=== PATIENT | female | born 1950 | race Caucasian/White ===

== ENCOUNTER 2017-07-07 06:41 | Day surgery (SDC) | payer BC ==
[~2017-07-07] VITALS: Ht 157.5 cm; Wt 80.5 kg
[~2017-07-07 06:41] MED LIST: /CIPR75TA OR; ACET65TA OR; ALLE180T33 PO; ALLI PO; BISO10TA PO; CALC-190 PO; CENTTAB PO; CINN500T PO; CO Q100C10 PO; COUM2.5T17 PO; CRAN400C PO; DIOV80TA3 PO; DIOVAN PO; FERR325T OR; FISH5CAP PO; FURO40TA2 PO; LASI20TA OR; MACR50CA OR; MACR50CA PO; NITR50CA2 PO; OMEG340C PO; PERCOCET PO; PROB1TAB PO; TYLENOL PO; VALS1TAB46 PO; VALS80CA OR; ZEBE5TAB OR; [UNRECOGNIZED DRUG - OTHER]; lasix PO; zebeta PO
[2017-07-07] MEDS ORDERED: PHENYLEPHRINE 2.5% OPHTH SOL 2ML OD ONE (07:00)
[2017-07-07] MEDS ORDERED: PROPARACAINE 0.5% OPHTH SOL 15ML OD ONE (07:00)
[2017-07-07] MEDS ORDERED: TROPICAMIDE 1% OPHTH SOLN 2ML OD ONE (07:00)
[2017-07-07] MEDS ORDERED: LIDOCAINE 1% MDV 20ML VIAL SQ PRN (07:00)
[2017-07-07] MEDS ORDERED: fentaNYL 100 MCG/2 ML INJECTION (J3010) As Ordered ONE (08:06)
[2017-07-07] MEDS ORDERED: MIDAZOLAM INJ 2 MG/2 ML VIAL (J2250) As Ordered ONE (08:06)
[2017-07-07] MEDS ORDERED: DUOVISC (0.50ML VISCOAT/0.55ML PROVISC) OPHTH KIT As Ordered ONE (08:07)
[2017-07-07] MEDS ORDERED: CEFUROXIME 1MG/0.1ML INTRACAMERAL INJ As Ordered ONE (08:07)
[2017-07-07] MEDS ORDERED: ACETYLCHOLINE OPHTH SOLN 1% 2ML (MIOCHOL-E) As Ordered ONE (08:07)
[2017-07-07] MEDS ORDERED: POVIDONE-IODINE 5% OPHTH PREP SOL 30ML As Ordered ONE (08:07)
[2017-07-07] MEDS ORDERED: BALANCED SALT IRRIGATION SOLUTION 500ML BAG (FOR OR EYE MACHINE) As Ordered ONE (08:07)
[2017-07-07] MEDS ORDERED: LIDOCAINE 0.75%/EPINEPHRINE 0.025% IN BSS 1ML SYR INTRACAMERAL (OR ONLY) As Ordered ONE (08:07)
[2017-07-07 09:15] VITALS: BP 109/60
[2017-07-07] MEDS ORDERED: BOTULINUM INJ 100 UNITS (J0585) As Ordered ONE (10:07)
--- NOTE | 2017-07-08 20:24 | RO ---
DATE OF PROCEDURE: 07/07/2017 PREOPERATIVE DIAGNOSIS: Visually significant nuclear sclerotic cataract right eye. POSTOPERATIVE DIAGNOSIS: Visually significant nuclear sclerotic cataract right eye. PROCEDURE: Cataract extraction with use of phacoemulsification and placement of intraocular lens, AU00T0, 21.5 diopters, right eye. SURGEON: Allan Sood DO NYLON MACHINE OPERATOR: ANESTHESIA: Local with monitored anesthesia care (MAC). COMPLICATIONS: None. POSTOPERATIVE CONDITION: Stable. INDICATION FOR SURGERY: Blurred vision right eye affecting patient's activities of daily living. DESCRIPTION OF PROCEDURE: The patient was seen in the preoperative area and properly identified. The correct operative eye was identified and marked. Attention was turned to that eye. The patient received topical antibiotics in the preoperative area. The patient then received topical dilating drops consisting of tropicamide and phenylephrine. The patient was then transferred to the operating room. The correct side was re-identified. The patient received topical anesthetics and antibiotics on the surface of the eye. The eye was prepped and draped in a sterile fashion. The upper and lower eyelids were isolated with Tegaderm tape, and the lids were held open with an adjustable speculum. Using a sideport blade, a paracentesis incision was made. Intraocular preservative-free lidocaine was then injected into the anterior chamber. Viscoelastic was then injected into the anterior chamber through the paracentesis. Using a 2.4 mm sharp-tipped keratome, the anterior chamber was entered via a temporal clear corneal incision. A continuous curvilinear capsulorrhexis was created with the aid of a 26-gauge cystotome and Utrata forceps. Hydrodissection was performed with balanced salt solution (BSS) on a blunt cannula until the nucleus was freely mobile. The crystalline lens was phacoemulsified and aspirated. Additional cohesive viscoelastic was placed into the capsular bag to deepen it. A AU00T0, 21.5 diopters lens was placed into the capsular bag and confirmed by visualizing the continuous curvilinear capsulorrhexis. Additional irrigation and aspiration was used to remove cortical material and remaining viscoelastic. The clear corneal incision was hydrated with BSS on a blunt cannula. The lens was well positioned. The incisions were then tested for leaks and found to be negative. The eye was then palpated for appropriate pressure and adjusted accordingly with BSS. The eyelid speculum was carefully removed. A shield was placed over the eye. The patient tolerated the procedure well and was discharged to the recovery unit in a stable condition. MOON
== END 2017-07-07 09:16 | disposition home or self-care (01) ==
LOC: M SDC 06:41
PROVIDERS: ATTEND Ophthalmology
DX: H25.11 Age-related nuclear cataract, right eye (principal); I50.9 Heart failure, unspecified; I10 Essential (primary) hypertension; Z95.0 Presence of cardiac pacemaker; Z95.810 Presence of automatic (implantable) cardiac defibrillator; Z88.0 Allergy status to penicillin; Z88.8 Allergy status to other drugs, medicaments and biological substances; Z87.891 Personal history of nicotine dependence; Z79.899 Other long term (current) drug therapy
CPT/HCPCS: 66984; J2250; J3010

== ENCOUNTER → 2017-07-21 | Day surgery (SDC) | payer BC ==
[~2017-07-21] VITALS: Ht 157.5 cm; Wt 79.0 kg
[~2017-07-21] MED LIST changes: +ACETYLCHOLINE OPHTH SOLN 1% 2ML (MIOCHOL-E) As Ordered ONE; +BALANCED SALT IRRIGATION SOLUTION 500ML BAG (FOR OR EYE MACHINE) As Ordered ONE; +CEFUROXIME 1MG/0.1ML INTRACAMERAL INJ As Ordered ONE; +DUOVISC (0.50ML VISCOAT/0.55ML PROVISC) OPHTH KIT As Ordered ONE; +LIDOCAINE 0.75%/EPINEPHRINE 0.025% IN BSS 1ML SYR INTRACAMERAL (OR ONLY) As Ordered ONE; +MIDAZOLAM INJ 2 MG/2 ML VIAL (J2250) As Ordered ONE; +PHENYLEPHRINE 2.5% OPHTH SOL 2ML OS ONE; +POVIDONE-IODINE 5% OPHTH PREP SOL 30ML As Ordered ONE; +PROPARACAINE 0.5% OPHTH SOL 15ML OS ONE; +TROPICAMIDE 1% OPHTH SOLN 2ML OS ONE; +fentaNYL 100 MCG/2 ML INJECTION (J3010) As Ordered ONE
[2017-07-21 11:29] VITALS: BP 110/62
--- NOTE | 2017-07-26 13:55 | RO ---
DATE OF PROCEDURE: 07/21/2017 PREOPERATIVE DIAGNOSIS: Visually significant nuclear sclerotic cataract left eye. POSTOPERATIVE DIAGNOSIS: Visually significant nuclear sclerotic cataract left eye. PROCEDURE: Cataract extraction with use of phacoemulsification and placement of intraocular lens, AU00T0 19.5, left eye. SURGEON: Allan Sood DO DOOR REPAIRMAN: ANESTHESIA: Local with monitored anesthesia care (MAC). COMPLICATIONS: None. POSTOPERATIVE CONDITION: Stable. INDICATION FOR SURGERY: Blurred vision left eye affecting patient's activities of daily living. DESCRIPTION OF PROCEDURE: The patient was seen in the preoperative area and properly identified. The correct operative eye was identified and marked. Attention was turned to that eye. The patient received topical antibiotics in the preoperative area. The patient then received topical dilating drops consisting of tropicamide and phenylephrine. The patient was then transferred to the operating room. The correct side was re-identified. The patient received topical anesthetics and antibiotics on the surface of the eye. The eye was prepped and draped in a sterile fashion. The upper and lower eyelids were isolated with Tegaderm tape, and the lids were held open with an adjustable speculum. Using a sideport blade, a paracentesis incision was made. Intraocular preservative-free lidocaine was then injected into the anterior chamber. Viscoelastic was then injected into the anterior chamber through the paracentesis. Using a 2.65 mm sharp-tipped keratome, the anterior chamber was entered via a temporal clear corneal incision. A continuous curvilinear capsulorrhexis was created with the aid of a 26-gauge cystotome and Utrata forceps. Hydrodissection was performed with balanced salt solution (BSS) on a blunt cannula until the nucleus was freely mobile. The crystalline lens was phacoemulsified and aspirated. Additional cohesive viscoelastic was placed into the capsular bag to deepen it. A left lens was placed into the capsular bag and confirmed by visualizing the continuous curvilinear capsulorrhexis. Additional irrigation and aspiration was used to remove cortical material and remaining viscoelastic. The clear corneal incision was hydrated with BSS on a blunt cannula. The lens was well positioned. The incisions were then tested for leaks and found to be negative. The eye was then palpated for appropriate pressure and adjusted accordingly with BSS. The eyelid speculum was carefully removed. TobraDex ointment was placed in the eye. An eye patch and shield were then secured over the eye. The patient tolerated the procedure well and was discharged to the recovery unit in a stable condition.
== END | disposition home or self-care (01) ==
LOC: M SDC 08:29
PROVIDERS: ATTEND Ophthalmology
DX: H25.12 Age-related nuclear cataract, left eye (principal); I50.32 Chronic diastolic (congestive) heart failure; I11.0 Hypertensive heart disease with heart failure; M12.9 Arthropathy, unspecified; R06.83 Snoring; Z88.0 Allergy status to penicillin; Z88.1 Allergy status to other antibiotic agents; Z88.6 Allergy status to analgesic agent; Z88.8 Allergy status to other drugs, medicaments and biological substances; Z79.899 Other long term (current) drug therapy; Z95.0 Presence of cardiac pacemaker; Z95.810 Presence of automatic (implantable) cardiac defibrillator; Z78.0 Asymptomatic menopausal state; Z96.653 Presence of artificial knee joint, bilateral; Z87.891 Personal history of nicotine dependence
CPT/HCPCS: 66984; J2250; J3010

== ENCOUNTER → 2017-08-22 | Outpatient (REF) | payer BC ==
[2017-08-23 14:17] LABS: FERRITIN 111 NG/ML (8-252); IRON (FE) 70 UG/DL (50-170); PERCENT SATURATION 23.3 % (13.2-45.0); TOTAL IRON BINDING CAPACITY 301 UG/DL (250-450)
[2017-08-23 14:26] LABS: VITAMIN B12 LEVEL 960 PG/ML (247-911)
== END ==
LOC: M LAB REF 13:31
DX: D64.9 Anemia, unspecified (principal)

== ENCOUNTER 2017-09-26 16:11 | Outpatient (RCR) | payer BC | END 2017-09-28 | LOC: M PT 16:11 | DX: Z51.89 Encounter for other specified aftercare (principal); M76.30 Iliotibial band syndrome, unspecified leg ==

== ENCOUNTER 2017-10-24 05:53 | Day surgery (SDC) | payer BC ==
[2017-10-24] MEDS ORDERED: LR 1,000 ML IV ×2 (06:00→08:45)
[2017-10-24] MEDS ORDERED: LIDOCAINE 1% MDV 20ML VIAL SQ (06:00)
[2017-10-24] MEDS ORDERED: MIDAZOLAM INJ 2 MG/2 ML VIAL (J2250) As Ordered ×3 (06:43→07:32)
[2017-10-24] MEDS ORDERED: fentaNYL 100 MCG/2 ML INJECTION (J3010) As Ordered ×2 (06:43→07:12)
[2017-10-24] MEDS ORDERED: PROPOFOL 200 MG/20 ML VIAL As Ordered (07:12)
[2017-10-24] MEDS: CLINDAMYCIN 900 MG in APPROPRIATE DILUENT 1 EA IV (07:40)
[2017-10-24] MEDS: LIDOCAINE 1% SDV INJ 30 ML VIAL As Ordered (07:49)
[2017-10-24] MEDS ORDERED: PERCOCET 5MG/325MG TAB PO (08:45)
[2017-10-24] MEDS ORDERED: ONDANSETRON 4MG/2ML VIAL (J2405) IV (08:45)
[2017-10-24] MEDS ORDERED: fentaNYL 100 MCG/2 ML INJECTION (J3010) IV (08:45)
== END 2017-10-24 10:01 | disposition home or self-care (01) ==
LOC: M SDC 05:53
DX: M67.471 Ganglion, right ankle and foot (principal); I11.9 Hypertensive heart disease without heart failure; I50.32 Chronic diastolic (congestive) heart failure; I42.9 Cardiomyopathy, unspecified; M12.9 Arthropathy, unspecified; R06.83 Snoring; E66.9 Obesity, unspecified; I25.10 Atherosclerotic heart disease of native coronary artery without angina pectoris; Z88.0 Allergy status to penicillin; Z88.1 Allergy status to other antibiotic agents; Z88.6 Allergy status to analgesic agent; Z88.8 Allergy status to other drugs, medicaments and biological substances; Z79.899 Other long term (current) drug therapy; Z95.0 Presence of cardiac pacemaker; Z95.810 Presence of automatic (implantable) cardiac defibrillator; Z96.653 Presence of artificial knee joint, bilateral; Z78.0 Asymptomatic menopausal state; Z87.891 Personal history of nicotine dependence; Z96.1 Presence of intraocular lens
CPT/HCPCS: 28090

== ENCOUNTER → 2018-02-23 | Outpatient (REF) | payer BC ==
[2018-02-23 18:08] LABS: VITAMIN B12 LEVEL 664 PG/ML (247-911)
== END ==
LOC: M LAB REF 17:04
DX: D64.9 Anemia, unspecified (principal)
CPT/HCPCS: 82607

== ENCOUNTER → 2018-10-04 | Outpatient (CLI) | payer BC ==
[~2018-10-04] MED LIST changes: -ACETYLCHOLINE OPHTH SOLN 1% 2ML (MIOCHOL-E) As Ordered ONE; +ALLI60CA2 PO; -BALANCED SALT IRRIGATION SOLUTION 500ML BAG (FOR OR EYE MACHINE) As Ordered ONE; -CEFUROXIME 1MG/0.1ML INTRACAMERAL INJ As Ordered ONE; -DUOVISC (0.50ML VISCOAT/0.55ML PROVISC) OPHTH KIT As Ordered ONE; -LIDOCAINE 0.75%/EPINEPHRINE 0.025% IN BSS 1ML SYR INTRACAMERAL (OR ONLY) As Ordered ONE; -MIDAZOLAM INJ 2 MG/2 ML VIAL (J2250) As Ordered ONE; -NITR50CA2 PO; +NITR50CA34 PO; -PHENYLEPHRINE 2.5% OPHTH SOL 2ML OS ONE; -POVIDONE-IODINE 5% OPHTH PREP SOL 30ML As Ordered ONE; -PROPARACAINE 0.5% OPHTH SOL 15ML OS ONE; -TROPICAMIDE 1% OPHTH SOLN 2ML OS ONE; -fentaNYL 100 MCG/2 ML INJECTION (J3010) As Ordered ONE
--- NOTE | 2018-10-04 13:47 | REP ---
TRIPLE PHASE BONE SCAN OF THE KNEES: Following the intravenous administration of 21.8 mCi of technetium-99m MDP, patient's knees are imaged in the flow phase in the anterior and posterior projections showing symmetrical flow. Immediate blood pool and 3 hour delayed images are performed of the knees in the anterior, posterior, and both lateral projections. Photopenic areas in both knee joints are compatible with bilateral knee prostheses. There is no abnormal blood pooling. There is minimal delayed uptake along the margins of the femoral and tibial prostheses bilaterally, more so on the left than on the right. I suspect this represents normal postsurgical uptake. There is no compelling evidence of loosening or infection on the right where the patient is asymptomatic. Electronically Signed by Jeff Rubalcava MD 10/04/2018 11:20 P
== END ==
LOC: M RAD 09:54
PROVIDERS: ATTEND Physician Assistant
DX: M25.561 Pain in right knee (principal); Z96.653 Presence of artificial knee joint, bilateral
CPT/HCPCS: 78315; A9503

== ENCOUNTER → 2018-10-16 | Outpatient (REF) | payer BC ==
[2018-10-16 18:27] LABS: BASO % 0.5 % (0.0-1.0); EOS # 0.2 10^3/uL (0.0-0.50); EOS % 3.4 % (0.0-3.0); HEMATOCRIT 34.7 % (36.0-47.0); LYMPH # 1.7 10^3/uL (1.5-4.5); LYMPH % 27.3 % (24.0-44.0); MEAN CORPUSCULAR HEMOGLOBIN 27.8 pg (27.0-33.0); MEAN CORPUSCULAR HGB CONC 31.7 g/dl (32.0-36.5); MEAN CORPUSCULAR VOLUME 87.8 fl (80.0-96.0); MONO # 0.5 10^3/uL (0.0-0.8); MONO % 8.5 % (0.0-5.0); NEUTROPHILS # 3.8 10^3/uL (1.8-7.7); PLATELET COUNT, AUTOMATED 200 10^3/uL (150-450); RED BLOOD COUNT 3.95 10^6/uL (4.00-5.40); WHITE BLOOD COUNT 6.3 10^3/uL (4.0-10.0)
[2018-10-16 18:29] LABS: BLOOD UREA NITROGEN 26 MG/DL (7-18); C REACTIVE PROTEIN QUANTITATIV 1.25 MG/DL (0.00-0.30); CREATININE FOR GFR 0.84 MG/DL (0.55-1.30); GLOMERULAR FILTRATION RATE > 60.0 (>45)
[2018-10-16 19:09] LABS: ERYTHROCYTE SEDIMENTATION RATE 63 mm/hr (0-30)
== END ==
LOC: M LABDRAW1 17:25
PROVIDERS: ATTEND Orthopaedic Surgery
DX: Z96.651 Presence of right artificial knee joint (principal)

== ENCOUNTER → 2018-11-06 | Outpatient (REF) | payer BC ==
[~2018-11-06] MED LIST changes: -BISO10TA PO; +BISO10TA13 PO; -VALS1TAB46 PO; +VALS1TAB66 PO
[2018-11-06 11:18] LABS: BLOOD UREA NITROGEN 23 MG/DL (7-18); CALCIUM LEVEL 9.4 MG/DL (8.8-10.2); CARBON DIOXIDE LEVEL 29 MEQ/L (21-32); CHLORIDE LEVEL 105 MEQ/L (98-107); CREATININE FOR GFR 0.92 MG/DL (0.55-1.30); GLOMERULAR FILTRATION RATE > 60.0 (>45); GLUCOSE, FASTING 118 MG/DL (70-100); POTASSIUM SERUM 4.4 MEQ/L (3.5-5.1); SODIUM LEVEL 139 MEQ/L (136-145)
== END ==
LOC: M LABDRAW1 10:53
PROVIDERS: ATTEND Orthopaedic Surgery
DX: M67.471 Ganglion, right ankle and foot (principal)

== ENCOUNTER 2019-01-01 06:02 | Day surgery (SDC) | payer BC ==
[~2019-01-01] VITALS: Ht 157.5 cm; Wt 84.8 kg
[~2019-01-01 06:02] MED LIST changes: +MULTCAP PO; +OMEG1CAP16 PO
[2019-01-01] MEDS ORDERED: LR 1,000 ML IV SCH ×2 (07:00→08:45)
[2019-01-01] MEDS ORDERED: LIDOCAINE 1% MDV 20ML VIAL As Ordered ONE (07:19)
[2019-01-01] MEDS ORDERED: CLINDAMYCIN 900 MG/50 ML PREMIX BAG As Ordered ONE (07:21)
[2019-01-01] MEDS ORDERED: CLINDAMYCIN 900 MG in APPROPRIATE DILUENT 1 EA IV ONE (07:30)
[2019-01-01] MEDS ORDERED: fentaNYL 100 MCG/2 ML INJECTION (J3010) As Ordered ONE (07:40)
[2019-01-01] MEDS ORDERED: PROPOFOL 200 MG/20 ML VIAL As Ordered ONE (07:40)
[2019-01-01] MEDS ORDERED: MIDAZOLAM INJ 2 MG/2 ML VIAL (J2250) As Ordered ONE (07:40)
[2019-01-01] MEDS ORDERED: ePHEDrine SULFATE 25 MG/5 ML(5MG/ML) SYRINGE As Ordered ONE (07:49)
[2019-01-01] MEDS ORDERED: ONDANSETRON 4MG/2ML VIAL (J2405) IV PRN (08:45)
[2019-01-01] MEDS ORDERED: fentaNYL 100 MCG/2 ML INJECTION (J3010) IV PRN (08:45)
[2019-01-01] MEDS ORDERED: HYDROMORPHONE HCL 0.5 MG/ 0.5 ML SYRINGE (J1170 PER 1) IV PRN (08:45)
[2019-01-01 09:11] VITALS: BP 157/67
--- NOTE | 2019-01-01 12:30 | RO ---
DATE OF PROCEDURE: 01/01/2019 PREPROCEDURE DIAGNOSIS: Right foot mass. POSTPROCEDURE DIAGNOSIS: Right foot mass. PROCEDURE: Excision of mass, right foot. SURGEON: Monse Turner MD PIPELINES LABORER: JIM Olmos ANESTHESIA: MAC sedation with approximately 10 mL of 1% lidocaine. ESTIMATED BLOOD LOSS: 5 mL. SPECIMENS: Right foot mass. COMPLICATIONS: None. CONDITION: Stable to recovery. INDICATION: Saira Gonzalez is a 68-year-old female with a painful right foot mass. Risks and benefits of surgery were discussed with the patient in detail and include but are not limited to infection, damage to nerves and blood vessels, continued pain and stiffness, need for additional procedure. Informed consent was obtained in the office. DESCRIPTION OF PROCEDURE: The patient was met in the preoperative holding area where the right foot was marked as the correct operative site. It was noted that the mass had significantly decreased in size since I had seen her last in the clinic. I was able to still palpate a small mass and the patient wished to proceed with excision of the mass. Once in the operating room, the patient was placed in supine position on the operating room table. Her bony prominences were well padded. She received antibiotics within 60 minutes prior to incision. The right lower extremity was prepped and draped in the normal sterile fashion. The patient underwent MAC sedation. An official time out was help where the correct patient, operative site, and operative procedure were verified. Following this, an Esmarch was used to exsanguinate the foot and was tied off at the angle of the tourniquet. I used approximately 5 mL to anesthetize the local area of the mass, which was at the base of the fourth metatarsal. A remaining 5 mL was put in at the end of the case for pain control. After the skin was adequately anesthetized, a small longitudinal incision was made in the region of the base of the fourth metatarsal directly over the palpable mass. There was a very small, approximately 3 or 4 mm, what appeared to be ganglion cyst subcutaneous under the skin. I was able to track this down to the region between the fourth and fifth metatarsals. The mass was excised. It was sent to pathology. Again, overall, this mass was fairly small in size, however, I was able to track it down to between the fourth and fifth metatarsals. A curette was used to make sure all remaining cyst had been debrided, as well as small rongeur. Copious irrigation was performed. 3-0 Vicryl was used to close the subcutaneous tissues and 3-0 nylon was used to close the skin. Sterile dressing was applied. She was taken the recovery room in stable condition. PLAN: The patient will be weightbearing as tolerated in a postoperative shoe. I will see her back in 2 weeks for suture removal. She will elevate her foot.
== END 2019-01-01 09:11 | disposition home or self-care (01) ==
LOC: M SDC 06:02
PROVIDERS: ATTEND Orthopaedic Surgery
DX: M67.471 Ganglion, right ankle and foot (principal); I11.0 Hypertensive heart disease with heart failure; I50.9 Heart failure, unspecified; I51.7 Cardiomegaly; M12.9 Arthropathy, unspecified; M81.0 Age-related osteoporosis without current pathological fracture; R06.83 Snoring; Z88.0 Allergy status to penicillin; Z88.1 Allergy status to other antibiotic agents; Z88.6 Allergy status to analgesic agent; Z88.8 Allergy status to other drugs, medicaments and biological substances; Z79.899 Other long term (current) drug therapy; Z95.0 Presence of cardiac pacemaker; Z95.810 Presence of automatic (implantable) cardiac defibrillator; Z96.653 Presence of artificial knee joint, bilateral; Z96.1 Presence of intraocular lens; Z98.41 Cataract extraction status, right eye; Z98.42 Cataract extraction status, left eye
CPT/HCPCS: 28090; 88307; J2250; J3010

== ENCOUNTER → 2019-01-25 | Outpatient (REF) | payer BC ==
[2019-01-26 13:05] LABS: PERCENT SATURATION 15.2 % (13.2-45.0)
== END ==
LOC: M LAB REF 12:39
PROVIDERS: ATTEND Internal Medicine
DX: D64.9 Anemia, unspecified (principal)

== ENCOUNTER 2019-02-09 11:32 | Day surgery (SDC) | payer BC ==
[~2019-02-09] VITALS: Ht 157.5 cm; Wt 85.3 kg
[~2019-02-09 11:32] MED LIST changes: +LIDOCAINE 2% INJ 100 MG/5 ML SDV (FOR ANES.) As Ordered ONE; +LR 1,000 ML IV ONE; +MIDAZOLAM INJ 2 MG/2 ML VIAL (J2250) As Ordered ONE; +ONDANSETRON 4MG/2ML VIAL (J2405) As Ordered ONE; +PROPOFOL 200 MG/20 ML VIAL As Ordered ONE; +fentaNYL 100 MCG/2 ML INJECTION (J3010) As Ordered ONE
[2019-02-09] MEDS ORDERED: CLINDAMYCIN 900 MG/50 ML PREMIX BAG As Ordered ONE (12:18)
[2019-02-09] MEDS ORDERED: CLINDAMYCIN 900 MG in APPROPRIATE DILUENT 1 EA IV ONE (12:30)
[2019-02-09] MEDS ORDERED: BUPIVACAINE HCL 0.5% 30 ML VIAL As Ordered ONE (12:35)
[2019-02-09] MEDS ORDERED: dexameTHASONE 4 MG/ML 1ML VIAL (J1100) As Ordered ONE (13:01)
[2019-02-09] MEDS ORDERED: ACETAMINOPH W/CODEINE #3 TAB UD PO PRN ×2 (13:45)
[2019-02-09] MEDS ORDERED: fentaNYL 100 MCG/2 ML INJECTION (J3010) IV PRN (13:45)
[2019-02-09] MEDS ORDERED: MEPERIDINE INJ 25 MG/ML VIAL (J2175) IV PRN (13:45)
[2019-02-09] MEDS ORDERED: METOCLOPRAMIDE INJ 10MG/2ML VIAL (J2765) IV PRN (13:45)
[2019-02-09] MEDS ORDERED: LR 1,000 ML IV SCH ×2 (13:45)
[2019-02-09] MEDS ORDERED: PERCOCET 5MG/325MG TAB PO PRN (13:45)
[2019-02-09] MEDS ORDERED: ONDANSETRON 4MG/2ML VIAL (J2405) IV PRN (13:45)
[2019-02-09 14:55] VITALS: BP 144/63
--- NOTE | 2019-02-10 14:25 | RO ---
DATE OF PROCEDURE: 02/09/2019 PREOPERATIVE DIAGNOSIS: Right proximal lateral tibia knee mass. POSTOPERATIVE DIAGNOSIS: Right proximal lateral tibia knee mass/possible ganglion. PROCEDURE: Open excision of right proximal lateral knee tibia mass. SURGEON: Kendall Grullon MD HEARING AID MECHANIC: ANESTHESIA: General. ESTIMATED BLOOD LOSS: Minimal. COMPLICATIONS: None. INDICATIONS: 68-year-old woman who has had a previous total knee, but also has had a painful nodule on the anterolateral aspect of her proximal tibia just below her knee. She wished to have with surgical treatment. She understood the nature of this, the risks of bleeding, infection, damage to nerves, vessels, persistent pain, recurrence, and among others. PROCEDURE: The patient was taken to the operating room, placed in supine position. After general anesthesia was induced, the right lower extremity was prepped and draped in the usual sterile fashion. Time out was performed. I then created a longitudinal incision over the palpable mass. The subcutaneous tissue was bluntly dissected until I was able to identify this mass which appeared to be a ganglion cyst. I carefully dissected around it and then lifted it off the fascia and then excised the mass. I irrigated and the ganglion was largely intact when I was removed. I closed the subcu with #2-0 Vicryl, closed the skin with deion. Sterile dressing was applied. She was taken to recovery room in stable condition. No known complications. The plan will be routine postop.
== END 2019-02-09 15:05 | disposition home or self-care (01) ==
LOC: M SDC 11:32
PROVIDERS: ATTEND Orthopaedic Surgery
DX: M67.461 Ganglion, right knee (principal); I50.9 Heart failure, unspecified; I11.9 Hypertensive heart disease without heart failure; M81.0 Age-related osteoporosis without current pathological fracture; Z79.899 Other long term (current) drug therapy; Z95.0 Presence of cardiac pacemaker; Z95.810 Presence of automatic (implantable) cardiac defibrillator; Z88.0 Allergy status to penicillin; Z88.8 Allergy status to other drugs, medicaments and biological substances; I42.9 Cardiomyopathy, unspecified
CPT/HCPCS: 27347; 88304; J1100; J2250; J2405; J3010

== ENCOUNTER → 2019-06-27 | Outpatient (REF) | payer BC ==
[~2019-06-27] MED LIST changes: -LIDOCAINE 2% INJ 100 MG/5 ML SDV (FOR ANES.) As Ordered ONE; -LR 1,000 ML IV ONE; -MIDAZOLAM INJ 2 MG/2 ML VIAL (J2250) As Ordered ONE; -ONDANSETRON 4MG/2ML VIAL (J2405) As Ordered ONE; -PROPOFOL 200 MG/20 ML VIAL As Ordered ONE; -fentaNYL 100 MCG/2 ML INJECTION (J3010) As Ordered ONE
== END ==
LOC: M LAB REF 12:01
PROVIDERS: ATTEND Internal Medicine
DX: R63.5 Abnormal weight gain (principal)

== ENCOUNTER → 2019-11-28 | Outpatient (CLI) | payer MEDICARE | LOC: M LABSMTC 13:49 | PROVIDERS: ATTEND Family Medicine | DX: Z11.59 Encounter for screening for other viral diseases (principal) ==

== ENCOUNTER 2020-01-18 22:52 | Emergency (ER) | payer MEDICARE ==
[~2020-01-18] VITALS: Ht 154.9 cm; Wt 90.9 kg
[2020-01-18 22:52] VITALS: BP 178/79
[2020-01-18] MEDS ORDERED: LOSA50TA88 PO (23:05)
== END 2020-01-19 01:42 | disposition home or self-care (01) ==
LOC: M ED 22:52
DX: S60.032A Contusion of left middle finger without damage to nail, initial encounter (principal); S60.042A Contusion of left ring finger without damage to nail, initial encounter; S60.052A Contusion of left little finger without damage to nail, initial encounter; W23.0XXA Caught, crushed, jammed, or pinched between moving objects, initial encounter; Y92.015 Private garage of single-family (private) house as the place of occurrence of the external cause; Y99.8 Other external cause status; Y93.89 Activity, other specified; Z88.0 Allergy status to penicillin; Z88.6 Allergy status to analgesic agent; Z88.1 Allergy status to other antibiotic agents; Z88.8 Allergy status to other drugs, medicaments and biological substances; Z95.0 Presence of cardiac pacemaker

== ENCOUNTER → 2020-02-08 | Outpatient (REF) | payer MEDICARE ==
[~2020-02-08] MED LIST changes: +LOSA50TA88 PO
== END ==
LOC: M LAB REF 12:02
PROVIDERS: ATTEND Internal Medicine
DX: D64.9 Anemia, unspecified (principal)

== ENCOUNTER 2020-07-27 15:18 | Emergency (ER) | payer MEDICARE ==
[~2020-07-27] VITALS: Ht 157.5 cm; Wt 91.8 kg
[2020-07-27 16:01] VITALS: BP 116/59
== END 2020-07-27 16:25 | disposition home or self-care (01) ==
LOC: M ED 15:18
DX: T82.118A Breakdown (mechanical) of other cardiac electronic device, initial encounter (principal); Y71.2 Prosthetic and other implants, materials and accessory cardiovascular devices associated with adverse incidents; R06.02 Shortness of breath; R53.1 Weakness; I10 Essential (primary) hypertension; J45.909 Unspecified asthma, uncomplicated; M32.9 Systemic lupus erythematosus, unspecified; Z88.0 Allergy status to penicillin; Z88.6 Allergy status to analgesic agent; Z88.8 Allergy status to other drugs, medicaments and biological substances; Z88.1 Allergy status to other antibiotic agents; Z79.899 Other long term (current) drug therapy; Z95.0 Presence of cardiac pacemaker

== ENCOUNTER → 2020-11-20 | Outpatient (REF) | payer MEDICARE ==
[2020-11-20 17:50] LABS: PERCENT SATURATION 14.2 % (13.2-45.0)
== END ==
LOC: M LAB REF 16:32
PROVIDERS: ATTEND Internal Medicine
DX: D64.9 Anemia, unspecified (principal)

== ENCOUNTER 2021-02-17 14:30 | Outpatient (RCR) | payer MEDICARE | END 2021-02-28 | LOC: M PT 14:30 | PROVIDERS: ATTEND Physician Assistant | DX: S46.912A Strain of unspecified muscle, fascia and tendon at shoulder and upper arm level, left arm, initial encounter (principal); S30.0XXA Contusion of lower back and pelvis, initial encounter ==

== ENCOUNTER → 2021-05-26 | Outpatient (REF) | payer MEDICARE ==
[2021-05-26 19:20] LABS: PERCENT SATURATION 18.5 % (13.2-45.0)
== END ==
LOC: M LAB REF 16:38
PROVIDERS: ATTEND Internal Medicine
DX: D50.9 Iron deficiency anemia, unspecified (principal)

== ENCOUNTER → 2022-04-26 | Outpatient (REF) | payer MEDICARE ==
[~2022-04-26] MED LIST changes: +D3 H10002 PO; +FLAX1CAP5 PO; +LOSA50TA28 PO; -LOSA50TA88 PO; +THERTAB52 PO
[2022-04-26 17:17] LABS: PERCENT SATURATION 6.9 % (13.2-45.0)
== END ==
LOC: M LAB REF 16:04
PROVIDERS: ATTEND Internal Medicine
DX: D50.9 Iron deficiency anemia, unspecified (principal)

== ENCOUNTER → 2022-04-28 | Outpatient (CLI) | payer MEDICARE, BC | LOC: M LABSMTC 11:33 | PROVIDERS: ATTEND Anesthesiology | DX: Z01.818 Encounter for other preprocedural examination (principal); Z11.52 Encounter for screening for COVID-19 ==

== ENCOUNTER 2022-05-03 11:46 | Day surgery (SDC) | payer MEDICARE ==
[~2022-05-03] VITALS: Ht 157.5 cm; Wt 94.8 kg
[2022-05-03] MEDS ORDERED: ATOR1TAB19 PO (12:14)
[2022-05-03] MEDS ORDERED: BIOT10009 PO (12:14)
[2022-05-03] MEDS ORDERED: ECOT81TA5 PO (12:14)
[2022-05-03] MEDS ORDERED: PODI1CAP PO (12:14)
[2022-05-03] MEDS ORDERED: MONT10TA97 PO (12:14)
[2022-05-03] MEDS ORDERED: FERR324T21 PO (12:14)
[2022-05-03] MEDS ORDERED: LIDOCAINE 2% 100MG/5ML SDV (FOR ANES.) As Ordered ONE (13:12)
[2022-05-03] MEDS ORDERED: propofoL 200 MG/20 ML VIAL As Ordered ONE (13:12)
[2022-05-03] MEDS ORDERED: SIMETHICONE 40MG/0.6ML DROPS 30ML As Ordered ONE (13:28)
[2022-05-03 14:09] VITALS: BP 122/59
== END 2022-05-03 14:10 | disposition home or self-care (01) ==
LOC: M OPP 11:46
PROVIDERS: ATTEND Internal Medicine Gastroenterology
DX: K57.30 Diverticulosis of large intestine without perforation or abscess without bleeding (principal); R19.5 Other fecal abnormalities; D50.9 Iron deficiency anemia, unspecified; K22.2 Esophageal obstruction; Z79.899 Other long term (current) drug therapy; Z88.0 Allergy status to penicillin; Z88.1 Allergy status to other antibiotic agents; Z88.6 Allergy status to analgesic agent; I50.9 Heart failure, unspecified; Z95.810 Presence of automatic (implantable) cardiac defibrillator; Z87.891 Personal history of nicotine dependence

== ENCOUNTER → 2022-06-12 | Outpatient (CLI) | payer MEDICARE ==
[~2022-06-12] MED LIST changes: +ATOR1TAB19 PO; +BIOT10009 PO; +ECOT81TA5 PO; +FERR324T21 PO; +MONT10TA97 PO; +PODI1CAP PO
[2022-06-12 14:04] LABS: CREATININE FOR GFR 1.16 MG/DL (0.55-1.30); GLOMERULAR FILTRATION RATE 48.8 (>39)
== END ==
LOC: M LAB 13:11
PROVIDERS: ATTEND Physician Assistant Medical
DX: D50.9 Iron deficiency anemia, unspecified (principal)

== ENCOUNTER → 2022-06-15 | Outpatient (CLI) | payer MEDICARE ==
[~2022-06-15] MED LIST changes: +GLUCAGON INJ 1MG VIAL As Ordered ONE; +ISOVUE-370 76% 100ML VIAL As Ordered ONE; +NEULUMEX 0.1% SUSPENSION 450ML BOTTLE (FORMERLY VOLUMEN) As Ordered ONE
== END ==
LOC: M RAD 14:29
PROVIDERS: ATTEND Physician Assistant Medical
DX: R19.5 Other fecal abnormalities (principal); D50.9 Iron deficiency anemia, unspecified
CPT/HCPCS: 74177; J1610; Q9967

== ENCOUNTER → 2022-07-28 | Outpatient (CLI) | payer MEDICARE ==
[~2022-07-28] MED LIST changes: -GLUCAGON INJ 1MG VIAL As Ordered ONE; -ISOVUE-370 76% 100ML VIAL As Ordered ONE; -NEULUMEX 0.1% SUSPENSION 450ML BOTTLE (FORMERLY VOLUMEN) As Ordered ONE
== END ==
LOC: M RAD 09:24
PROVIDERS: ATTEND Internal Medicine
DX: D41.10 Neoplasm of uncertain behavior of unspecified renal pelvis (principal)

== ENCOUNTER → 2022-11-04 | Outpatient (CLI) | payer MEDICARE ==
[~2022-11-04] MED LIST changes: +ISOVUE-370 76% 100ML VIAL As Ordered ONE
== END ==
LOC: M RAD 09:32
PROVIDERS: ATTEND Physician Assistant
DX: I77.810 Thoracic aortic ectasia (principal)
CPT/HCPCS: 71275; Q9967

== ENCOUNTER → 2023-01-13 | Outpatient (CLI) | payer MEDICARE ==
[~2023-01-13] MED LIST changes: -ISOVUE-370 76% 100ML VIAL As Ordered ONE
[2023-01-13 17:35] LABS: HEMATOCRIT 28.4 % (36.0-47.0); HEMOGLOBIN 8.7 g/dl (12.0-15.5); MEAN CORPUSCULAR HEMOGLOBIN 31.8 pg (27.0-33.0); MEAN CORPUSCULAR HGB CONC 30.6 g/dl (32.0-36.5); MEAN CORPUSCULAR VOLUME 103.6 fl (80.0-96.0); PLATELET COUNT, AUTOMATED 305 10^3/uL (150-450); RED BLOOD COUNT 2.74 10^6/uL (4.00-5.40); WHITE BLOOD COUNT 5.4 10^3/uL (4.0-10.0)
[2023-01-13 17:38] LABS: PERCENT SATURATION 12.8 % (13.2-45.0)
== END ==
LOC: M PLALAB 15:17
PROVIDERS: ATTEND Nurse Practitioner Family
DX: D64.9 Anemia, unspecified (principal)

== ENCOUNTER → 2023-02-22 | Outpatient (REF) | payer MEDICARE ==
[2023-02-22 19:07] LABS: PERCENT SATURATION 10.3 % (13.2-45.0)
== END ==
LOC: M LAB REF 16:21
PROVIDERS: ATTEND Internal Medicine
DX: D50.9 Iron deficiency anemia, unspecified (principal)

== ENCOUNTER → 2023-03-17 | Outpatient (REF) | payer MEDICARE ==
[2023-03-17 19:55] LABS: APPEARANCE, URINE TURBID (CLEAR); BACTERIA, URINE AUTO 1+ (NEGATIVE); BILIRUBIN, URINE AUTO NEGATIVE (NEGATIVE); BLOOD, URINE BLOOD NEGATIVE (NEGATIVE); COLOR, URINE AMBER (YELLOW); GLUCOSE, URINE (UA) AUTO NEGATIVE (NEGATIVE); KETONE, URINE AUTO NEGATIVE (NEGATIVE); LEUKOCYTE ESTERASE, URINE AUTO 3+ (NEGATIVE); NITRITE, URINE AUTO POSITIVE (NEGATIVE); PROTEIN, URINE AUTO NEGATIVE (NEGATIVE); RBC, URINE AUTO 34 /HPF (0-3); SPECIFIC GRAVITY URINE AUTO 1.011 (1.002-1.035); SQUAMOUS EPITHELIAL CELL UR AU 3 /HPF (0-6); UROBILINOGEN, URINE AUTO 0.2 mg/dL (0.0-2.0); WBC, URINE AUTO TNTC /HPF (0-3)
== END ==
LOC: M LAB REF 19:01
PROVIDERS: ATTEND Internal Medicine
DX: R35.0 Frequency of micturition (principal)

== ENCOUNTER → 2023-03-31 | Outpatient (REF) | payer MEDICARE | LOC: M LAB REF 16:17 | PROVIDERS: ATTEND Internal Medicine | DX: N39.0 Urinary tract infection, site not specified (principal) ==

== ENCOUNTER → 2023-03-31 | Outpatient (CLI) | payer MEDICARE ==
[2023-03-31 14:24] LABS: CHOLESTEROL RISK RATIO 4.81 (<5); HDL CHOLESTEROL 40.3 MG/DL (>40); LDL CHOLESTEROL 92.1 MG/DL (<100); NON-HDL-C 153.7 MG/DL
== END ==
LOC: M PLALAB 10:24
PROVIDERS: ATTEND Nurse Practitioner Family
DX: I25.10 Atherosclerotic heart disease of native coronary artery without angina pectoris (principal); Z79.899 Other long term (current) drug therapy

== ENCOUNTER → 2023-07-14 | Outpatient (REF) | payer MEDICARE ==
[2023-07-14 18:51] LABS: FERRITIN 128.1 NG/ML (7.3-270.7)
== END ==
LOC: M LAB REF 17:31
PROVIDERS: ATTEND Internal Medicine
DX: D50.9 Iron deficiency anemia, unspecified (principal)

== ENCOUNTER → 2023-08-22 | Outpatient (CLI) | payer MEDICARE | LOC: M WHC 14:41 | PROVIDERS: ATTEND Internal Medicine | DX: Z12.31 Encounter for screening mammogram for malignant neoplasm of breast (principal) ==

== ENCOUNTER → 2023-11-14 | Outpatient (REF) | payer MEDICARE, OTHER ==
[2023-11-14 18:06] LABS: BASO % 0.4 % (0.0-1.0); EOS # 0.3 10^3/uL (0.0-0.5); EOS % 4.7 % (0.0-3.0); HEMATOCRIT 35.6 % (36.0-47.0); HEMOGLOBIN 11.6 g/dl (12.0-15.5); LYMPH # 1.4 10^3/uL (1.5-5.0); LYMPH % 26.1 % (24.0-44.0); MEAN CORPUSCULAR HGB CONC 32.6 g/dl (32.0-36.5); MONO # 0.5 10^3/uL (0.0-0.8); MONO % 9.5 % (2.0-8.0); NEUTROPHILS # 3.1 10^3/uL (1.5-8.5); NEUTROPHILS % 58.2 % (36.0-66.0); PLATELET COUNT, AUTOMATED 151 10^3/uL (150-450); RED BLOOD COUNT 3.87 10^6/uL (4.00-5.40); WHITE BLOOD COUNT 5.3 10^3/uL (4.0-10.0)
[2023-11-14 18:14] LABS: ERYTHROCYTE SEDIMENTATION RATE 41 mm/hr (0-30)
[2023-11-14 18:23] LABS: ALBUMIN 3.2 G/DL (3.2-5.2); ALKALINE PHOSPHATASE 95 U/L (46-116); ALT/SGPT 23 U/L (7.0-40); AST/SGOT 18 U/L (<34); BILIRUBIN,TOTAL 0.4 MG/DL (0.3-1.2); BLOOD UREA NITROGEN 23 MG/DL (9-23); CALCIUM LEVEL 8.5 MG/DL (8.3-10.6); CARBON DIOXIDE LEVEL 26 MMOL/L (20-31); CHLORIDE LEVEL 108 MMOL/L (98-107); CREATININE FOR GFR 0.87 MG/DL (0.55-1.30); GLOMERULAR FILTRATION RATE > 60.0 (>39); GLUCOSE, FASTING 117 MG/DL (74-106); POTASSIUM SERUM 4.5 MMOL/L (3.5-5.1); SODIUM LEVEL 141 MMOL/L (136-145); TOTAL PROTEIN 6.6 G/DL (5.7-8.2)
== END ==
LOC: M LAB REF 17:41 → M LABWUC 17:41
PROVIDERS: ATTEND Physician Assistant
DX: Z96.653 Presence of artificial knee joint, bilateral (principal); M70.51 Other bursitis of knee, right knee; M70.52 Other bursitis of knee, left knee

== ENCOUNTER → 2023-11-30 | Outpatient (CLI) | payer MEDICARE | LOC: M RAD 07:43 | PROVIDERS: ATTEND Physician Assistant | DX: Z96.653 Presence of artificial knee joint, bilateral (principal) | CPT/HCPCS: 78315; A9503 ==

== ENCOUNTER → 2024-01-20 | Outpatient (REF) | payer MEDICARE ==
[~2024-01-20] MED LIST changes: -CRAN400C PO; +CRANBERRY400 MG PO
[2024-01-20 18:27] LABS: FERRITIN 236.2 NG/ML (7.3-270.7); PERCENT SATURATION 22.6 % (13.2-45.0)
== END ==
LOC: M LAB REF 17:06
PROVIDERS: ATTEND Internal Medicine
DX: D50.9 Iron deficiency anemia, unspecified (principal)

== ENCOUNTER → 2024-03-16 | Outpatient (REF) | payer MEDICARE ==
[2024-03-16 13:56] LABS: PERCENT SATURATION 22.4 % (13.2-45.0)
[2024-03-16 13:58] LABS: FERRITIN 193.1 NG/ML (7.3-270.7)
== END ==
LOC: M LAB REF 12:27
PROVIDERS: ATTEND Internal Medicine
DX: D50.9 Iron deficiency anemia, unspecified (principal)

== ENCOUNTER → 2025-03-07 | Outpatient (REF) | payer MEDICARE ==
[2025-03-07 17:46] LABS: IRON (FE) 50.0 UG/DL (50-170); PERCENT SATURATION 18.9 % (13.2-45.0)
== END ==
LOC: M LAB REF 17:25
PROVIDERS: ATTEND Internal Medicine
DX: D50.9 Iron deficiency anemia, unspecified (principal)

== ENCOUNTER → 2025-03-28 | Outpatient (CLI) | payer MEDICARE | LOC: M RAD 14:04 | PROVIDERS: ATTEND Internal Medicine | DX: R63.4 Abnormal weight loss (principal); R10.2 Pelvic and perineal pain; K57.10 Diverticulosis of small intestine without perforation or abscess without bleeding; M47.815 Spondylosis without myelopathy or radiculopathy, thoracolumbar region; I70.0 Atherosclerosis of aorta; R93.89 Abnormal findings on diagnostic imaging of other specified body structures ==

== ENCOUNTER → 2025-04-16 | Outpatient (CLI) | payer MEDICARE | LOC: M RAD 12:10 | PROVIDERS: ATTEND Internal Medicine | DX: N28.1 Cyst of kidney, acquired (principal) ==

== ENCOUNTER → 2025-05-28 | Outpatient (CLI) | payer MEDICARE ==
[~2025-05-28] MED LIST changes: +E-Z-GAS II EFFERVESCENT PACKET (SODIUM BICARB./CITRIC ACID/SIMETHICONE) As Ordered ONE; +E-Z-HD 98% w/w 340 GM SUSP BTL As Ordered ONE; +E-Z-PAQUE 96% w/w SUSP 176 GM BTL As Ordered ONE
== END ==
LOC: M RAD 08:45
PROVIDERS: ATTEND Internal Medicine
DX: R10.9 Unspecified abdominal pain (principal)

== ENCOUNTER → 2025-07-18 | Outpatient (CLI) | payer MEDICARE ==
[~2025-07-18] MED LIST changes: -E-Z-GAS II EFFERVESCENT PACKET (SODIUM BICARB./CITRIC ACID/SIMETHICONE) As Ordered ONE; -E-Z-HD 98% w/w 340 GM SUSP BTL As Ordered ONE; -E-Z-PAQUE 96% w/w SUSP 176 GM BTL As Ordered ONE
== END ==
LOC: M WUC 11:10
PROVIDERS: ATTEND Student in an Organized Health Care Education/Training Program
DX: M25.572 Pain in left ankle and joints of left foot (principal)